=== PATIENT | female | born 1945 | race Caucasian/White ===

== ENCOUNTER 2020-11-03 04:14 | Day surgery (SDC) | payer OTHER, MEDICARE ==
[2020-11-02 13:24] VITALS: BMI 39.4
[2020-11-03] MEDS ORDERED: LIDOCAINE HCL 1%, 10 MG/ML (20ML VIAL) ONE (07:53)
[2020-11-03] MEDS ORDERED: PROPOFOL 20 ML ONE ×3 (09:24→10:14)
[2020-11-03] MEDS ORDERED: MIDAZOLAM HCL 2 MG/2 ML SINGLE DOSE VIAL ONE (09:24)
[2020-11-03] MEDS ORDERED: ceFAZolin SODIUM 1 GM VIAL ONE (09:30)
[2020-11-03] MEDS ORDERED: oxyCODONE HCL 5 MG TABLET PO PRN ×2 (09:41)
[2020-11-03] MEDS ORDERED: ONDANSETRON 4 MG/2 ML VIAL IVPUSH PRN (09:41)
[2020-11-03] MEDS ORDERED: LIDOCAINE HCL 1%, 10 MG/ML (20ML VIAL) INF ONE (09:42)
[2020-11-03] MEDS ORDERED: LACTATED RINGERS SOLUTION 1,000 ML IV SCH (09:45)
[2020-11-03] MEDS ORDERED: HEPARIN NA (PORCINE) 5,000 UNITS/ML 1ML VIAL ONE (09:53)
[2020-11-03] MEDS ORDERED: PROTAMINE SULFATE 50 MG/5 ML VIAL ONE (10:32)
[2020-11-03] MEDS ORDERED: CLOPIDOGREL BISULFATE 75 MG TABLET (FP) PO ONE ×2 (10:55→11:50)
[2020-11-03 12:58] VITALS: TEMP 97.7
[2020-11-03 15:29] VITALS: BP 129/64; PULSE 88
== END 2020-11-03 14:20 | disposition home or self-care (01) ==
LOC: JASU-SURG 04:14
PROVIDERS: ATTEND Surgery Vascular Surgery
PROC: 047L3DZ Dilation of Left Femoral Artery with Intraluminal Device, Percutaneous Approach (ICD-10-PCS; principal; 2020-11-03 09:00)
DX: I70.244 Atherosclerosis of native arteries of left leg with ulceration of heel and midfoot (principal); E11.621 Type 2 diabetes mellitus with foot ulcer; L97.429 Non-pressure chronic ulcer of left heel and midfoot with unspecified severity; Z79.84 Long term (current) use of oral hypoglycemic drugs
CPT/HCPCS: 37227; C1877; 76000-TC-FY; 82962; 86850; 86900; 86901; 94760; J1644